=== PATIENT | male | born 1995 | race Caucasian/White ===

== ENCOUNTER 2019-11-21 12:25 | Emergency (ER) | payer SELFPAY | END 2019-11-21 14:02 | disposition home or self-care (01) | PROVIDERS: Emergency Provider Nurse Practitioner Family; Visit Provider Nurse Practitioner Family | DX: L60.0 Ingrowing nail (principal) | CPT/HCPCS: 11730; 96372; 99282; J2001 ==

== ENCOUNTER 2019-12-18 08:30 | Emergency (ER) | payer SELFPAY ==
[2019-12-18 08:40] VITALS: BMI 25.7
[2019-12-18 08:43] VITALS: BP 128/77; PULSE 94; RESP 18; TEMP 36.7; O2SAT 97
--- NOTE | 2019-12-18 08:49 | W.ED.NECK ---
HPI - Neck Pain/Injury General: Chief Complaint: Neck Pain/Injury Stated Complaint: Knot on back of neck Time Seen by Provider: 12/18/19 08:44 History of Present Illness: HPI Narrative: Patient comes in today with tenderness to the posterior neck. Patient reports increased discomfort over the last 2 to 3 days. Patient also has a rash in the area of pain and discomfort. Minimal redness is noted to the area. Palpable induration with central fluctuance is noted. MD complaint: neck pain Review of Systems General: Reports: 10 or more systems reviewed and unremarkable except in HPI and below Musc: Reports: neck pain Skin/Breast: Reports: rash PFSH ED PFSH: Statuses (acute, chronic, etc) shown below reflect problem list status as previously entered and may not be historically accurate Social History Smoking and tobacco status: never smoked Physical Exam Const: COMMON NORMALS: no apparent distress and oriented x3 GENERAL APPEARANCE: cooperative HENMT: COMMON NORMALS: normocephalic, external ears normal, EAC's normal, TM's normal bilaterally and external nose normal HEAD & SCALP: normal to inspection and normocephalic FACE & SINUS: normal facial exam NOSE: external nose normal GENERAL EAR: hearing not grossly impaired EXTERNAL EAR: Yes external ears normal EXTERNAL AUDITORY CANAL: EAC's normal TYMPANIC MEMBRANE: TM's normal bilaterally MOUTH: oral and palatal mucosa normal THROAT: posterior oropharynx normal Eye: COMMON NORMALS: PERRL and EOMs intact bilaterally PUPIL: Yes PERRL Neck/C-Spine: COMMON NORMALS: full ROM and no lymphadenopathy OTHER: posterior rash to hair line, palpable tenderness and induration to left central neck minimal redness to the area Lymph: LYMPHATIC: no lymphedema noted Chest: COMMONS NORMALS: inspection of chest normal and palpation of chest normal Resp: COMMON NORMALS: normal respiratory effort and clear to auscultation bilaterally AUSCULTATION: clear to auscultation bilaterally Cardio: COMMON NORMALS: regular rate and regular rhythm RATE: regular rate RHYTHM: regular rhythm GI: COMMON NORMALS: normal to inspection, nondistended, normoactive bowel sounds and non-tender : COMMON NORMALS: Yes no CVA tenderness BLADDER/KIDNEY EXAM: Yes no CVA tenderness Back/Pelvis: COMMON NORMALS: no CVA tenderness and thoracic and lumbar spine normal to inspection Extremity: COMMON NORMALS: normal to inspection GENERAL: No edema Neuro: COMMON NORMALS: oriented x3, moves all extremities and no focal motor deficits Psych: COMMON NORMALS: mental status grossly normal and cooperative Skin: NARRATIVE SKIN EXAM: pustular rash to posterior neck, hairline Procedures Abscess I/D Site: neck Sedation/analgesia: other (hydrocodone/apap 7.5-325) Local Anesthetic: lidocaine 2% and with epi Amount of anesthesia used (mL): 6 Technique: incised with #11 blade Amount of fluid expressed (mL): 45 Irrigation: No Packing used?: plain (8 cm) Complications: other (none noted) Course Vital Signs: Vital signs: Vital Signs Temperature 98.0 F 12/18/19 08:43 Pulse Rate 94 12/18/19 08:43 Respiratory Rate 18 12/18/19 08:43 Blood Pressure 128/77 12/18/19 08:43 Pulse Oximetry 97 12/18/19 08:43 MDM - Neck Pain/Injury MDM Narrative: Medical decision making narrative: Patient comes in today with complaints of soreness and swelling to the posterior neck. Patient noticed area about 3 days ago. And seems to have progressively gotten worse. Exam notes minimal redness to the area we do know a pustular rash to the hairline though. Skin is warm and dry color is pink. Vital signs are stable. Differential diagnosis includes abscess, cellulitis, folliculitis, muscle strain. Ultrasound of the area of pain noticed a pocket of fluid approximately 2 to 3 cm in diameter. With patient consent we did an incision and drainage with a large amount of purulent fluid. Culture was collected. Reviewed exam with patient recommendations for postprocedure care and follow-up. Patient reports understanding and agreed to plan. Discharge Plan Discharge Patient Disposition: Home, Self-Care Clinical Impression: Abscess, neck Condition: Stable Prescriptions: New clindamycin HCl 150 mg capsule 450 mg PO BID 7 Days Qty: 42 RF: 0 hydrocodone-acetaminophen 5-325 mg tablet 1 tab PO Q6H PRN (Reason: pain) Qty: 7 RF: 0 Discharge Orders: Discharge Order (Routine); Ordered 12/18/19 Ordered By: Kalen James Discharge Diet: Usual diet Discharge Activity: Resume usual activity Patient Instructions: Abscess Incision and Drainage (ED) Activity Restrictions/Additional Instructions: Remove wick in 3 days Change dressing as it is soiled Drink plenty of water with medications Use acetaminophen and ibuprofen as needed for control of pain Use hydrocodone for worse pain Follow-up with primary care in three days for recheck REturn to ER for any concerns or high fever Coding Level of Care Code ED Turning And Beading Machine Operator for Samantha Lugo Exam Problem Focused
--- NOTE | 2019-12-18 08:53 | US_ITS ---
WS: [id number] ULTRASOUND SOFT TISSUES posterior neck. HISTORY: palpable mass COMPARISON: None available. TECHNIQUE: 2-D and color Doppler imaging is submitted. Palpable areas over the posterior neck at the skull base. There is a necrotic appearing mass with marked decreased echogenicity corresponding to the palpable a bnormality. Mass measures 2.9 x 3.1 x 1.7 cm. Mild peripheral increased vascularity. Central kyphosis and complex fluid. US/US soft tissue head neck [id number] IMPRESSION: Palpable area corresponds to a complex mass with central necrosis measuring 2.9 x 3.1 x 1.7 cm. This could be an abnormal lymph node, soft tissue abscess or i nfected sebaceous cyst.
--- NOTE | 2019-12-18 08:57 | PC.NURSE ---
lump noted to posterior neck-no erythema.
--- NOTE | 2019-12-18 09:15 | PC.NURSE ---
portable ultrasound at bedside
[2019-12-18] MEDS: HYDROcodone-acetaminophen 7.5-325 mg Tablet 1 TAB PO (09:18)
[2019-12-18] MEDS: clindamycin 150 mg Capsule 300 MG PO (09:19)
--- NOTE | 2019-12-18 10:11 | PC.NURSE ---
nurse assisted midlevel provider to drain abscess on pt's neck. procedure time 15minutes. pt tolerated procedure fair.
[2019-12-18 10:20] VITALS: BP 128/71; PULSE 86; RESP 18; O2SAT 96
== END 2019-12-18 10:18 | disposition home or self-care (01) ==
PROVIDERS: Emergency Provider Nurse Practitioner Family
DX: L02.11 Cutaneous abscess of neck (principal)
CPT/HCPCS: 10060; 76536; 87070; 87077; 87205; 99282

== ENCOUNTER 2020-07-05 09:16 | Emergency (ER) | payer SELFPAY ==
[2020-07-05 09:30] VITALS: BP 126/84; PULSE 97; RESP 18; TEMP 36.1; O2SAT 95; BMI 31.4
[2020-07-05 09:43] VITALS: BP 126/84
--- NOTE | 2020-07-05 09:51 | ED_ITS ---
HPI - Skin/Abscess/Foreign Bdy General: Chief complaint: Skin/Abscess/Foreign Body Stated complaint: abscess back of neck Time Seen by Provider: 07/05/20 09:29 History of Present Illness: HPI narrative: Patient is a 25-year-old male comes to the ED with painful lump on neck. Patient says it started approximately 2 weeks ago. It has become bigger and more painful. Patient denies any fever, chills, nausea/vomiting, bladder or bowel symptoms. Denies any past history of MRSA or staph infections. Associated symptoms: Deny chills, fever(s), nausea or vomiting Review of Systems Const: Denies: fever(s), chills or fatigue Eyes: Denies: change in vision or eye discomfort ENMT: Denies: throat pain, odynophagia, nasal discharge or nasal congestion Card: Denies: chest pain, palpitations, edema, swelling of feet/ankles, dyspnea on exertion or orthopnea Resp: Denies: dyspnea, productive cough or non-productive cough GI: Denies: abdominal pain, nausea, vomiting, diarrhea, constipation or hematochezia : Denies: flank pain, difficulty urinating, dysuria or hematuria Musc: Denies: neck pain, back pain or extremity swelling Skin/Breast: Reports: new lesions (On neck.); Denies: rash Neuro: Denies: headache(s), numbness in extremities or weakness in extremities PFSH ED PFSH: Social History Smoking and tobacco status: never smoked Physical Exam Const: COMMON NORMALS: no acute distress, patient oriented x3 and alert GENERAL APPEARANCE: cooperative and comfortable HENMT: COMMON NORMALS: normocephalic HEAD & SCALP: normocephalic MOUTH: Normal oral and palatal mucosa present THROAT: posterior oropharynx normal and uvula midline Neck/C-Spine: COMMON NORMALS: supple GENERAL: Yes normal visual inspection Resp: COMMON NORMALS: normal respiratory effort, No retractions, No use of accessory muscles and clear to auscultation bilaterally AUSCULTATION: clear to auscultation bilaterally Cardio: COMMON NORMALS: regular rate, regular rhythm, S1 normal heart sound present, S2 normal heart sound present, No gallops present (Cardio), No clicks present (Cardio), No murmurs present (Cardio) and Peripheral pulses 2+ throughout RATE: regular rate RHYTHM: regular rhythm HEART SOUNDS: S1 normal heart sound present and S2 normal heart sound present PERIPHERAL PULSES: Peripheral pulses 2+ throughout GI: COMMON NORMALS: Normal to inspection, nondistended, normoactive bowel sounds present, Soft to palpation, non-tender and no masses PALPATION: Yes Soft to palpation : COMMON NORMALS: Yes no CVA tenderness BLADDER/KIDNEY EXAM: Yes no CVA tenderness Back/Pelvis: COMMON NORMALS: no CVA tenderness Extremity: COMMON NORMALS: normal to inspection Neuro: COMMON NORMALS: patient oriented x3 and moves all extremities SENSORIUM/ORIENTATION: Yes alert Skin: NARRATIVE SKIN EXAM: Lesion on neck had no erythema but did have some warmth and was tender to the touch. Palpation showed the mass was nonfluctuant and indurated. Abscess appears to be forming but not able to drain yet. Course ED course: Bedside ultrasound was performed to see if abscess had drainable fluid in it and down was located. Vital Signs: Vital signs: Vital Signs Temperature 96.9 F L 07/05/20 09:30 Pulse Rate 98 07/05/20 10:27 Respiratory Rate 18 07/05/20 10:27 Blood Pressure 126/84 07/05/20 10:27 Pulse Oximetry 96 07/05/20 10:27 MDM - Skin/Abscess/Foreign Bdy MDM Narrative: Medical decision making narrative: Patient is a 25-year-old male who has an abscess on neck. Exam findings showed it was tender warm nonfluctuant and indurated upon palpation. Bedside ultrasound showed no fluid pocket to drain. Patient was put on antibiotic and corticosteroid. He was told to follow-up with PCP or return to ED to get abscess drained if it becomes larger and more painful and he even after on antibiotic treatment for couple days. Patient understood and agree with plan Discharge Plan Discharge Patient Disposition: Home Clinical Impression: Abscess Condition: Stable Prescriptions: New Bactrim DS 800-160 mg tablet 1 tab PO BID 7 Days Qty: 14 RF: 0 prednisone 20 mg tablet 20 mg PO TID 4 Days Qty: 12 RF: 0 No Action No Known Home Medications RF: 0 Discharge Orders: Discharge Order (Routine); Ordered 07/05/20 Ordered By: Orville Bautista Discharge Diet: Regular Discharge Activity: Resume usual activity Patient Instructions: Abscess (ED) Activity Restrictions/Additional Instructions: Follow-up with medical provider as directed. Take medications as prescribed. You can start the first dose of prednisone tomorrow since you got a full dose today. Apply warm compress on neck to help with symptoms. Take Tylenol or ibuprofen for pain. If after couple days it continues to worsen or abscess gets larger return to ED do drain abscess. Return to the ER or your medical provider if condition worsens. Please read and understand discharge instructions. If any questions, please ask. Discharge Date/Time: 07/05/20 10:26 Coding Level of Care Code ED Label Printing Machinist for Samantha Fwselene Exam Comprehensive
[2020-07-05] MEDS: predniSONE 20 mg Tablet 60 MG PO (10:16)
[2020-07-05] MEDS: sulfamethoxazole-trimeth DS 160-800 mg Tablet 1 TAB PO (10:17)
[2020-07-05 10:27] VITALS: BP 126/84; PULSE 98; RESP 18; O2SAT 96
== END 2020-07-05 10:26 | disposition home or self-care (01) ==
PROVIDERS: Emergency Provider Physician Assistant
DX: L02.11 Cutaneous abscess of neck (principal)
CPT/HCPCS: 12345; 99282; 99283; J7512

== ENCOUNTER 2022-12-09 13:19 | Emergency (ER) | payer MEDICAID, SELFPAY ==
[2022-12-09 13:24] VITALS: BP 104/51; PULSE 84; RESP 16; TEMP 36.4; O2SAT 98
--- NOTE | 2022-12-09 16:20 | CTR_ITS ---
PROCEDURE INFORMATION: Exam: CT Neck With Contrast Exam date and time: 12/09/2022 5:37 PM Age: 27 years old Clinical indication: Mass, lump, or swelling in neck; Posterior; Additional info: Infection/abscess TECHNIQUE: Imaging protocol: Computed tomography of the neck with contrast. Radiation optimization: All CT scans at this facility use at least one of these dose optimization techniques: automated exposure control; mA and/or kV adjustment per patient size (includes targeted exams where dose is matched to clinical indication); or iterative reconstruction. Contrast material: OMNI 350; Contrast volume: 80 ml; Contrast route: INTRAVENOUS (IV); COMPARISON: US soft tissue head neck [id number] 12/18/2019 9:11 AM RADIATION DOSE METRICS: Total DLP (mGy-cm): 403.24 FINDINGS: Paranasal sinuses: Moderate right-sided maxillary sinus mucosal thickening with air-fluid level. Pharynx: Unremarkable. No significant tonsillar enlargement. Larynx: Unremarkable. Epiglottis is normal. Prevertebral and retropharyngeal spaces: Unremarkable. Salivary glands: Normal. Glands are normal in size. Thyroid: Normal. No enlarged or calcified nodules. Lymph nodes: Mildly enlarged bilateral level 2 lymph nodes are present, which are likely reactive. Trachea: Visualized trachea is unremarkable. Lungs: Unremarkable as visualized. Bones/joints: Unremarkable. No acute fracture. Soft tissues: In the left paramidline upper neck posteriorly in the subcutaneous soft tissues there is a rim enhancing fluid collection measuring 3.1 x 3.9 x 2.7 cm. This abuts the skin surface in this of the located at approximately the C3 level. The adjacent skin is thickened. No other fluid is seen. CT/CT neck w con* [id number] IMPRESSION: 1. 3.9 cm maximum dimension subcutaneous soft tissue abscess in the left posterior paramidline neck, with adjacent changes of cellulitis. Given history of previous posterior neck abscess, this could be a recurrent collection. Clinically exclude a malignancy which could conceivably appear similar. 2. Findings of acute right maxillary sinusitis.
[2022-12-09 17:13] LABS: Basophils % 0.3 %; Eosinophils # 0.2 10^3/uL (0.0-0.8); Eosinophils % 1.9 %; Hematocrit 49.3 % (42.0-52.0); Hemoglobin 16.6 g/dL (11.7-16.6); Lymphocytes # 2.5 10^3/uL (0.8-4.8); Lymphocytes % 22.3 %; Mean Corpuscular HGB Conc 33.7 g/dL (30.0-36.0); Mean Corpuscular Hemoglobin 28.5 pg (28.0-34.0); Mean Corpuscular Volume 84.7 fl (80-94); Mean Platelet Volume 10.6 fL (7.4-10.4); Monocytes # 0.8 10^3/uL (0.2-0.9); Monocytes % 6.6 %; Neutrophils # 7.83 10^3/uL (1.8-7.7); Neutrophils % 68.6 %; Nucleated Red Blood Cells % 0 %; Platelet Count 260 10^3/cmm (130-400); Red Blood Count 5.82 10^6/uL (4.1-5.3); Red Cell Distribution Width 12.2 % (12.1-15.1); White Blood Count 11.4 10^3/uL (4.0-10.0)
--- NOTE | 2022-12-09 17:31 | W.ED.SKABFB ---
Documented by User: [email or web address] Mariscal 12/09/22 17:38 HPI - Skin/Abscess/Foreign Bdy General: Chief complaint: Skin/Abscess/Foreign Body Stated complaint: Bump on the back of neck Time Seen by Provider: 12/09/22 16:19 History of Present Illness: Patient is a 27-year-old male that presents to the emergency department with complaints of abscess to posterior neck. Onset November 26 or around then. Patient denies fever or chills. Has developed recent pain and swelling in the area. Is a hard area of induration that measures about 4 to 5 cm and then a small indurated area. Associated symptoms: Deny chills, fever(s), nausea or vomiting Review of Systems General: Reports: 10 or more systems reviewed and unremarkable except in HPI and below Const: Denies: fever(s), chills, change in appetite, change in weight, fatigue or malaise Eyes: Denies: change in vision, eye discomfort, eye discharge or eye redness ENMT: Denies: throat pain, enlarged tonsils, odynophagia, hoarseness, ear or mastoid pain, ear discharge, change in hearing, tinnitus, nasal discharge, nasal congestion, post nasal drip or sinus pain Card: Denies: chest pain, palpitations, irregular heart rhythm, edema, dyspnea on exertion, orthopnea or leg pain with exertion Resp: Denies: dyspnea, productive cough, non-productive cough, wheezing, stridor or chest congestion GI: Denies: abdominal pain, nausea, vomiting, dysphagia, diarrhea, constipation, bloating, GI cramping or hematochezia : Denies: flank pain, dysuria, urinary frequency, urinary urgency, urinary hesitancy, oliguria or hematuria Musc: Denies: neck pain, back pain, extremity pain, joint pain, joint swelling, joint redness, joint warmth or muscle weakness Skin/Breast: Denies: rash, pruritus, erythema, photosensitivity or new lesions Neuro: Denies: headache(s), numbness in extremities, weakness in extremities, sensory changes, lack of coordination, difficulty walking, frequent falls, dizziness, confusion, Slurred speech present, difficulty communicating thoughts, seizure-like activity or involuntary movements Endo: Denies: polyuria, polydipsia or tired all the time Ralph/Lymph: Denies: easy bruising or easy bleeding PFSH ED PFSH: Social History Smoking and tobacco status: never smoked Physical Exam Narrative: EXAM NARRATIVE: No acute distress Alert and oriented x3 Calm and cooperative Const: OTHER: Well developed, well kept, well nourished HENMT: OTHER: Wound to posterior neck. Abscess formation Indurated area left of midline posterior cervical This is just distal to the hairline Indurated area is approximately 4 to 5 cm Area of fluctuance maybe 1 cm Erythema and warmth present Resp: OTHER: Even unlabored breaths, symmetrical chest rise and fall Cardio: OTHER: Regular rate and rhythm GI: OTHER: No abdominal complaints Soft Skin: NARRATIVE SKIN EXAM: See above Course Vital Signs: Vital signs: Vital Signs Temperature 97.5 F L 12/09/22 13:24 Pulse Rate 84 12/09/22 13:24 Respiratory Rate 16 12/09/22 18:21 Blood Pressure 104/51 12/09/22 13:24 Pulse Oximetry 98 12/09/22 18:21 MDM - Skin/Abscess/Foreign Bdy Medicial Decision Making Patient was evaluated in the emergency department for abscess to posterior neck CT neck was ordered. At [address] were not complete. I have incision care to Mayank James NP/PA. He has been updated on complaint and history. Lab Data 12/09/22 17:03 12/09/22 17:[address] 12/09/22 16:20 IMPRESSION: 1. 3.9 cm maximum dimension subcutaneous soft tissue abscess in the left posterior paramidline neck, with adjacent changes of cellulitis. Given history of previous posterior neck abscess, this could be a recurrent collection. Clinically exclude a malignancy which could conceivably appear similar. 2. Findings of acute right maxillary sinusitis. Laboratory Results WBC 11.4 10^3/uL (4.0-10.0) H 12/09/22 17:03 RBC 5.82 10^6/uL (4.1-5.3) H 12/09/22 17:03 Hgb 16.6 g/dL (11.7-16.6) 12/09/22 17: Hct 49.3 % (42.0-52.0) 12/09/22 17:03 MCV 84.7 fl (80-94) 12/09/22 17:03 MCH 28.5 pg (28.0-34.0) 12/09/22 17:03 MCHC 33.7 g/dL (30.0-36.0) 12/09/22 17:03 RDW 12.2 % (12.1-15.1) 12/09/22 17:03 Plt Count 260 10^3/cmm (130-400) 12/09/22 17:03 MPV 10.6 fL (7.4-10.4) H 12/09/22 17:03 Neut % (Auto) 68.6 % 12/09/22 17:03 Lymph % (Auto) 22.3 % 12/09/22 17:03 [place] % (Auto) 6.6 % 12/09/22 17:03 Eos % (Auto) 1.9 % 12/09/22 17:03 Baso % (Auto) 0.3 % 12/09/22 17:03 Neut # (Auto) 7.83 10^3/uL (1.8-7.7) H 12/09/22 17:03 Lymph # (Auto) 2.5 10^3/uL (0.8-4.8) 12/09/22 17:03 [place] # (Auto) 0.8 10^3/uL (0.2-0.9) 12/09/22 17:03 Eos # (Auto) 0.2 10^3/uL (0.0-0.8) 12/09/22 17:03 Baso # (Auto) 0.0 10^3/uL (0.0-0.1) 12/09/22 17:03 Nucleated RBC % (auto) 0 % 12/09/22 17:03 Nucleated RBCs # 0.0 /100WBC 12/09/22 17:03 Sodium 139 mmol/L (136-145) 12/09/22 17:03 Potassium 3.8 mmol/L (3.5-5.1) 12/09/22 17:03 Chloride 99 mmol/L (98-107) 12/09/22 17:03 Carbon Dioxide 27 mmol/L (22-29) 12/09/22 17:03 Anion Gap 16.8 (5-19) 12/09/22 17:03 BUN 6 mg/dL (6-20) 12/09/22 17:03 Creatinine 0.7 mg/dL (0.7-1.2) 12/09/22 17:03 GFR Calculation 136.3 mL/min (90-130) H 12/09/22 17:03 Glucose 84 mg/dL (65-115) 12/09/22 17:03 Calculated Osmolality 285 mOsm/kg (285-295) 12/09/22 17:03 Calcium 9.2 mg/dL (8.5-10.5) 12/09/22 17:03 Total Bilirubin 0.5 mg/dL (0.15-1.2) 12/09/22 17:03 AST 19 U/L (0-40) 12/09/22 17:03 ALT 31 U/L (0-41) 12/09/22 17:03 Alkaline Phosphatase 80 U/L (40-130) 12/09/22 17:03 Total Protein 7.7 g/dL (6.6-8.7) 12/09/22 17:03 Albumin 4.5 g/dL (3.5-5.2) 12/09/22 17:03 Globulin 3.2 g/dL (1.3-4.6) 12/09/22 17:03 Discharge Plan Discharge Patient Disposition: Home Clinical Impression: Abscess of skin or subcutaneous tissue Qualifiers: Site of cutaneous abscess: neck Qualified Code(s): L02.11 - Cutaneous abscess of neck Condition: Stable Prescriptions: New clindamycin HCl 300 mg capsule 300 mg PO TID 7 Days Qty: 21 0RF Discharge Orders: Discharge ED (Routine); Ordered 12/09/22 Ordered By: Kalen James Patient Instructions: Abscess Incision and Drainage (DC) Activity Restrictions/Additional Instructions: Home and rest. Acetaminophen and ibuprofen for pain. Take antibiotics as directed. Follow-up with primary care in 2 to 3 days for recheck. Case management will contact you regarding follow-up appointment with surgeon for further evaluation and treatment as needed. Coding Level of Care Code ED Electrical Technology Instructor for Chg Fwd Documented by User: [email or web address] Ware 12/09/22 18:50 HPI - Skin/Abscess/Foreign Bdy General: Chief complaint: Skin/Abscess/Foreign Body Stated complaint: Bump on the back of neck Time Seen by Provider: 12/09/22 16:19 PFSH ED PFSH: Social History Smoking and tobacco status: never smoked Procedures Abscess I/D Site: neck Local Anesthetic: lidocaine 2% Amount of anesthesia used (mL): 2 Technique: incised with #11 blade Amount of fluid expressed (mL): 5 Irrigation: Yes Packing used?: plain Complications: pain Course Vital Signs: Vital signs: Vital Signs Temperature 97.5 F L 12/09/22 13:24 Pulse Rate 84 12/09/22 13:24 Respiratory Rate 16 12/09/22 18:21 Blood Pressure 104/51 12/09/22 13:24 Pulse Oximetry 98 12/09/22 18:21 MDM - Skin/Abscess/Foreign Bdy Medicial Decision Making Patient was evaluated in the emergency department for abscess to posterior neck CT neck was ordered. At [address] were not complete. I have incision care to Mayank James, PRINCE/PA. He has been updated on complaint and history. CT of the neck noted a 3 to 4 cm abscess in the posterior neck. Under local anesthetic patient was incised and drained. Recommended that patient follow-up with surgeon for further evaluation and treatment as needed. Encourage fluids rest and return to the ER for new concerns or worsening symptoms. Patient be continued on clindamycin 3 times a day for the next 7 days. Patient reported understanding and agreed to plan. Lab Data 12/09/22 17:03 12/09/22 17:[address] 12/09/22 16:20 IMPRESSION: 1. 3.9 cm maximum dimension subcutaneous soft tissue abscess in the left posterior paramidline neck, with adjacent changes of cellulitis. Given history of previous posterior neck abscess, this could be a recurrent collection. Clinically exclude a malignancy which could conceivably appear similar. 2. Findings of acute right maxillary sinusitis. Laboratory Results WBC 11.4 10^3/uL (4.0-10.0) H 12/09/22 17:03 RBC 5.82 10^6/uL (4.1-5.3) H 12/09/22 17:03 Hgb 16.6 g/dL (11.7-16.6) 12/09/22 17:03 Hct 49.3 % (42.0-52.0) 12/09/22 17:03 MCV 84.7 fl (80-94) 12/09/22 17:03 MCH 28.5 pg (28.0-34.0) 12/09/22 17:03 MCHC 33.7 g/dL (30.0-36.0) 12/09/22 17:03 RDW 12.2 % (12.1-15.1) 12/09/22 17:03 Plt Count 260 10^3/cmm (130-400) 12/09/22 17:03 MPV 10.6 fL (7.4-10.4) H 12/09/22 17:03 Neut % (Auto) 68.6 % 12/09/22 17:03 Lymph % (Auto) 22.3 % 12/09/22 17:03 [place] % (Auto) 6.6 % 12/09/22 17:03 Eos % (Auto) 1.9 % 12/09/22 17:03 Baso % (Auto) 0.3 % 12/09/22 17:03 Neut # (Auto) 7.83 10^3/uL (1.8-7.7) H 12/09/22 17:03 Lymph # (Auto) 2.5 10^3/uL (0.8-4.8) 12/09/22 17:03 [place] # (Auto) 0.8 10^3/uL (0.2-0.9) 12/09/22 17:03 Eos # (Auto) 0.2 10^3/uL (0.0-0.8) 12/09/22 17:03 Baso # (Auto) 0.0 10^3/uL (0.0-0.1) 12/09/22 17:03 Nucleated RBC % (auto) 0 % 12/09/22 17:03 Nucleated RBCs # 0.0 /100WBC 12/09/22 17:03 Sodium 139 mmol/L (136-145) 12/09/22 17:03 Potassium 3.8 mmol/L (3.5-5.1) 12/09/22 17:03 Chloride 99 mmol/L (98-107) 12/09/22 17:03 Carbon Dioxide 27 mmol/L (22-29) 12/09/22 17:03 Anion Gap 16.8 (5-19) 12/09/22 17:03 BUN 6 mg/dL (6-20) 12/09/22 17:03 Creatinine 0.7 mg/dL (0.7-1.2) 12/09/22 17:03 GFR Calculation 136.3 mL/min (90-130) H 12/09/22 17:03 Glucose 84 mg/dL (65-115) 12/09/22 17:03 Calculated Osmolality 285 mOsm/kg (285-295) 12/09/22 17:03 Calcium 9.2 mg/dL (8.5-10.5) 12/09/22 17:03 Total Bilirubin 0.5 mg/dL (0.15-1.2) 12/09/22 17:03 AST 19 U/L (0-40) 12/09/22 17:03 ALT 31 U/L (0-41) 12/09/22 17:03 Alkaline Phosphatase 80 U/L (40-130) 12/09/22 17:03 Total Protein 7.7 g/dL (6.6-8.7) 12/09/22 17:03 Albumin 4.5 g/dL (3.5-5.2) 12/09/22 17:03 Globulin 3.2 g/dL (1.3-4.6) 12/09/22 17:03 Discharge Plan Discharge Patient Disposition: Home Clinical Impression: Abscess of skin or subcutaneous tissue Qualifiers: Site of cutaneous abscess: neck Qualified Code(s): L02.11 - Cutaneous abscess of neck Condition: Stable Prescriptions: New clindamycin HCl 300 mg capsule 300 mg PO TID 7 Days Qty: 21 0RF Discharge Orders: Discharge ED (Routine); Ordered 12/09/22 Ordered By: Kalen James Patient Instructions: Abscess Incision and Drainage (DC) Activity Restrictions/Additional Instructions: Home and rest. Acetaminophen and ibuprofen for pain. Take antibiotics as directed. Follow-up with primary care in 2 to 3 days for recheck. Case management will contact you regarding follow-up appointment with surgeon for further evaluation and treatment as needed. Coding Level of Care Code ED Electrical Technology Instructor for Samantha Lugo
[2022-12-09 17:42] LABS: Alanine Aminotransferase 31 U/L (0-41); Albumin Level 4.5 g/dL (3.5-5.2); Alkaline Phosphatase 80 U/L (40-130); Anion Gap 16.8 (5-19); Aspartate Amino Transferase 19 U/L (0-40); Blood Urea Nitrogen 6 mg/dL (6-20); Calcium 9.2 mg/dL (8.5-10.5); Carbon Dioxide 27 mmol/L (22-29); Chloride 99 mmol/L (98-107); Globulin 3.2 g/dL (1.3-4.6); Glomerular Filtration Rate 136.3 mL/min (90-130); Glucose 84 mg/dL (65-115); Osmolality Calculated 285 mOsm/kg (285-295); Potassium 3.8 mmol/L (3.5-5.1); Sodium 139 mmol/L (136-145); Total Bilirubin 0.5 mg/dL (0.15-1.2); Total Protein 7.7 g/dL (6.6-8.7)
[2022-12-09] MEDS: iohexol 350 mg/mL 500 mL Btl (per mL) IV (17:48)
[2022-12-09 18:21] VITALS: RESP 16; O2SAT 98
[2022-12-09] MEDS: morphine 4 mg/mL SDV 1 mL IVP (18:21)
[2022-12-09] MEDS: ketorolac 30 mg/mL INJ IVP (18:24)
[2022-12-09] MEDS: ondansetron 2 mg/ML SDV 2 mL 4 MG IVP (18:24)
[2022-12-09] MEDS: clindamycin 600 MG/50 ML PREMIX 100 MG IV (18:45)
[2022-12-09] MEDS: lidocaine 1% INJ 10 mL (per mL) 5 ML INJECTION (19:31)
[2022-12-09 19:32] VITALS: BP 114/89; PULSE 88; RESP 15; TEMP 36.7; O2SAT 96
--- NOTE | 2022-12-11 10:33 | DCPLANNER ---
Addendum entered by Nimo Costello 01/25/23 07:51: Patient had a follow up appointment scheduled with general surgery - patient did attend appointment. Addendum entered by Nimo Costello 12/13/22 12:09: Patient has a follow up appointment scheduled for Thursday, December 29, [address]22 at 8:[address] Salas at general surgery. Clinic will call patient with appointment information. Original Note: manager mental health had message to schedule a follow up appointment for patient with general surgery. manager mental health sent patients information to the front office staff at general surgery. Patients information will be printed and reviewed. Clinic will call patient with appointment information.
== END 2022-12-09 19:25 | disposition home or self-care (01) ==
PROVIDERS: Nurse Practitioner; Emergency Provider Nurse Practitioner Family
DX: L02.11 Cutaneous abscess of neck (principal)
CPT/HCPCS: 10060; 70491; 80053; 85025; 96365; 96375; 99285; J1885; J2270; J2405; J3490; Q9967